=== PATIENT | male | born 1960 | race Caucasian/White ===

== ENCOUNTER 2017-05-13 14:44 | Inpatient (IN) ==
[2017-05-13] MEDS ORDERED: ENOXAPARIN 100 MG/ML SYRINGE SUBCUT STA (15:01)
[2017-05-13] MEDS ORDERED: METOPROLOL TARTRATE 5 MG/5 ML VIAL IV STA (15:01)
[2017-05-13] MEDS ORDERED: NITROGLYCERIN SL 0.4 MG TABLET SL PRN (15:01)
[2017-05-13] MEDS ORDERED: ASPIRIN 325 MG TABLET PO STA (15:01)
[2017-05-13] MEDS ORDERED: NITROGLYCERIN 2% OINT 1 INCH/GM PACK TOP STA (15:06)
--- NOTE | 2017-05-13 15:13 | Emergency Department Note ---
Gaston Camejo Brittany, am scribing for, and in the presence of, Otrega Lynn MD 15:08. Leah Camejo James D, MD, personally performed the services described in this documentation, ascribed by Stormy Feldman in my presence, and it is both accurate and complete 513 . Arrival - Arrival Chief Complaint: Chest Pain Stated Complaint: chest pains short of breath tingle fingers ED Nursing Triage Note: c/o chest pain/tightness that started this morning. Patients states this morning when it started he felt a little sick. He states that he has been having a lot of indigestion for last two days. Patient denies sob. Patient states he has some tingling in his fingers as well. no hx of heart problems. Mode of Arrival: Ambulatory Limitations: No Limitations Source: Patient, RN Notes Reviewed Time Seen by Provider: 05/13/17 15:01 - History of Present Illness HPI Narrative: Patient is a 56 y/o white male presenting to the ED with c/o left sided chest pain described as a tightness that radiates into the mid-back and left finger numbness that began this morning. Patient states that he did break out in a sweat and did have an episode of nausea/vomiting. Patient reports that he has been unable to sit down secondary to anxiety feeling. He notes that he had been having some indigestion recently and initially attributed this chest pain to that, but after prolongation of pain and onset of associated sxs he became concerned. Family history significant for heart disease, father had a quadruple bypass. No PCP. No recent melena, hematochezia, or hematemesis. No history of use of smoking tobacco. No further complaints. Onset (ago): hour(s) Consistency: constant Allergies/Adverse Reactions: Allergies Allergy/AdvReac Type Severity Reaction Status Date / Time No Known Allergies Allergy Unverified 05/13/17 14:57 Review of System - Review of System 12 point system: reviewed and no additional remarkable complaints except as stated - Review of System Constitutional: Present: diaphoresis Respiratory: Absent: respiratory distress Cardiovascular: Present: chest pain Gastrointestinal: Present: nausea, vomiting Musculoskeletal: Present: arm pain (left), back pain. Absent: neck pain Medical,Surgical,& Family Hx - Medical History Medical History: noncontributory - Surgical History Surgical History: noncontributory - Family History Family History: Reports;: Family Heart Disease (father) - Social History Smoking Status: Never smoker Frequency of Alcohol Use: None Type of Drug Use: None Exam Physical Examination: GENERAL: This is a well-nourished, well-developed white male in no apparent distress. VITAL SIGNS: Reviewed. HEENT: Head is normocephalic and atraumatic. Pupils are equally round and reactive to light. Extraocular movement are intact. Oropharynx is benign with moist mucous membranes. NECK: Neck is soft and supple without tenderness. There are no masses. There is no lymphadenopathy. LUNGS: Lungs are clear to auscultation bilaterally. Chest rises symmetrically. There is no chest wall tenderness. CV: Heart is regular rate and rhythm without murmurs, rubs, or gallops. ABDOMEN: Abdomen is soft, non-tender to palpation. There are no abnormal masses palpated. There is no organomegaly. Bowel sounds are present and active. SKIN: Skin is warm and dry. No rash. EXTREMITIES: Patient has full range of motion without tenderness. There is no pedal edema. NEUROLOGIC: Awake, alert, and oriented x4. Cranial nerves II through XII are grossly intact. There are no motorsensory deficits. PSYCHIATRIC: Normal affect. Normal mood. Vital Signs: Vital Signs Temperature 98.1 F 05/13/17 14:51 Pulse Rate 109 H 05/13/17 14:51 Respiratory Rate 18 05/13/17 14:51 Blood Pressure 175/106 05/13/17 14:51 O2 Sat by Pulse Oximetry 96 05/13/17 14:51 Course Course Narrative: Patient was given aspirin, Lovenox, nitroglycerin paste, and Lopressor in the emergency department. - Consultations Consultation #1: Discussed with hospitalist. Patient will be admitted to their service. Time: 15:56 Results - Labs CBC & BMP: 05/13/17 15:35 Lab Results: I have reviewed the patients labs - EKG EKG results: interpreted by ERMD - Impressions EKG: Sinus tachycardia with a rate of 103, nonspecific ST-T wave changes, normal axis. - Diagnostic Findings Procedure: Chest x-ray: image reviewed by me (No infiltrates, no pleural effusions.) Critical Care Time Critical Care Time: No Disposition Clinical Impression: Chest pain, Essential hypertension Case discussed with: patient, patient's family Disposition: Still a Patient Condition: Stable
[2017-05-13] MEDS ORDERED: ENOXAPARIN 100 MG/ML SYRINGE SUBCUT ONE (15:14)
[2017-05-13] MEDS ORDERED: NITROGLYCERIN 2% OINT 1 INCH/GM PACK TOP ONE (15:14)
[2017-05-13] MEDS ORDERED: METOPROLOL TARTRATE 5 MG/5 ML VIAL IV ONE (15:15)
[2017-05-13] MEDS ORDERED: ASPIRIN 325 MG TABLET ONE (15:16)
--- NOTE | 2017-05-13 15:25 | XRay Report ---
2 view chest Indication: Chest pain Comparison: Not available Findings: Cardiomediastinal contours are normal. Lungs are clear bilaterally. . No acute osseous abnormalities. Visualized upper abdomen demonstrates no acute pathology. Impression: Normal chest PROCEDURE INTERPRETED AT [facility] DEPARTMENT OF RADIOLOGY Final Report Signed by: Tiago Hernandez MD
[2017-05-13 15:47] LABS: Basophils # 0.1 10*3/uL (0.0-0.2); Basophils % 0.7 % (0.0-0.8); Eosinophils % 0.1 % (0.00-10.9); Hematocrit 47.3 VOL% (42.0-52.0); Hemoglobin 17.1 GM/DL (14.0-18.0); Immature Granulocytes % 0.5 %; Immature Granulocytes Absolute 0.04 #; Lymphocytes % 12.8 % (21.2-54.2); Mean Corpuscular HGB Conc 36.2 GM/DL (32-36); Mean Corpuscular Hemoglobin 32 PG (27-34); Mean Corpuscular Volume 87.3 FL (87-102); Mean Platelet Volume 10.3 FL (9.6-12.0); Monocytes # 0.5 10*3/uL (0.11-0.8); Neutrophils # 5.9 10*3/uL (1.4-7.4); Neutrophils % 78.9 % (38.7-73.9); Platelet Count 221 T/CUMM (130-400); Red Blood Count 5.42 MC/CUMM (3.8-5.5); Red Cell Distribution Width 13.2 % (9.3-17.3); White Blood Count 7.5 T/CUMM (4-12)
[2017-05-13 15:57] LABS: Apearance,Urine CLEAR (Clear); Bilirubin,Urine Negative (Negative); Blood, Urine Negative (Negative); Glucose,Urine (UA) Negative (Negative); Ketones,Urine Negative (Negative); Mucus,Urine Occasional /LPF (Occasional); Nitrite,Urine Negative (Negative); Protein,Urine Negative; RBC,Urine <1 /HPF (0-4); Urine Color Straw (Yellow); Urine Specific Gravity 1.003 (1.001-1.035); Urine Urobilinogen < 2.0 EU/DL (0.2-1.0); WBC,Urine <1 /HPF (0-6)
[2017-05-13 16:01] LABS: Barbiturates Screen,Urine Negative (Negative); Benzodiazepines Screen,Urine Negative (Negative); Cannabinoid Screen,Urine Negative (Negative); Opiate Screen,Urine Negative (Negative); PT Patient Result 10.8 SECS; Partial Thromboplastin Time 27.7 SECS (0-40); Phencyclidine Screen,Urine Negative (Negative)
[2017-05-13] MEDS ORDERED: ZALEPLON 5 MG CAPSULE PO PRN (16:02)
[2017-05-13] MEDS ORDERED: ONDANSETRON 4 MG/2 ML VIAL IV PRN (16:02)
[2017-05-13 16:04] LABS: Bilirubin,Total 0.4 MG/DL (0.2-1.0); Osmolality,Calculated 278.7 MOS/KG (273-304); Potassium 3.9 MMOL/L (3.5-5.1); Total Protein 7.6 G/DL (6.4-8.3)
[2017-05-13] MEDS ORDERED: FUROSEMIDE 40 MG/4 ML VIAL IV STA (16:05)
[2017-05-13] MEDS ORDERED: hydrALAZINE 20 MG/1 ML VIAL IV STA (16:05)
[2017-05-13 16:29] LABS: Risk Ratio 5.48; VLDL CHOLESTEROL 57.6 MG/DL
--- NOTE | 2017-05-13 16:32 | Hospitalist History & Physical ---
<Deanna Lunada - Last Filed: 05/13/17 16:30> Assessment and Plan (1) Hyperlipemia Status: Acute Assessment and plan: Triglycerides were noted at 288 and cholesterol at 230. The patient reported no past history of hyperlipidemia. We will start Crestor 40 mg p.o. nightly. Current Visit: Yes (2) Chest pain Status: Acute Assessment and plan: Initial cardiac enzymes were noted at less than 0.015. Although the patient reports no significant past medical history, the patient was noted to be grossly hypertensive at the time of ED presentation. In addition, the patient also reported strong family history of cardiovascular disease and he is also overweight. These are certainly risk factors for the development of cardiovascular disease. We will conduct a full cardiac workup. We will obtain echocardiogram, serial troponins, and initiate medical management. If cardiac enzymes are positive, we will consult cardiology. Current Visit: Yes (3) Essential hypertension Status: Acute Assessment and plan: At the time of ED presentation, the patient was noted to be grossly hypertensive with a blood pressure reported at 175/106. The patient reports no significant medical history of hypertension. The patient was given multiple intravenous antihypertensive agents during the ED encounter however, his systolic blood pressure remained above 85. We will start low-grade MELVIN inhibitor, beta-alix, and aspirin prophylactically. We will monitor blood pressures closely during the clinical encounter. Current Visit: Yes History of Present Illness History of present illness: This is a very pleasant 56-year-old male that presented to the ED at [facility] this afternoon for further evaluation of chest pain. The patient reported no significant medical or surgical history at the time of ED presentation; however reported a family history of coronary artery disease. The patient reported the onset of symptoms 6 hours prior to presentation. He reported a sudden onset of left-sided chest pain with radiation to the mid back and left arm that began earlier this morning. During the episode, the patient reported diaphoresis, nausea, and vomiting. He reported immediate anxiety as a result of this episode. In addition, the patient reported multiple episodes in recent days of indigestion that he initially attributed his chest pain to. He became alarmed and drove himself to his daughter's house however, his daughter was not at home. He proceeded to call his who advised him to stop at the [employer] and ask for assistance. The patient was subsequently transported to [facility] for further evaluation. The patient was assessed at the time of ED presentation. The patient was noted to be grossly hypertensive with a blood pressure recorded at 175/106 and tachycardic with a heart rate at 109. The chest pain protocol was initiated. Labs were obtained which were significant for alkaline phosphatase 137, BUN 19, glucose 129, triglycerides 288, and cholesterol 230. Urine toxicology was essentially unremarkable. Chest x-ray was essentially unremarkable. After brief discussion with both Dr. Orozco and Dr. Kerr, the patient will be admitted to the hospitalist group for continuation of care. The patient reported no home medications at the time of ED presentation therefore no medications will be reconciled. CODE STATUS discussed; patient is a FULL CODE. Home Medications Medication Instructions Recorded Confirmed Type No Known Home Medications [No 05/13/17 05/13/17 History Known Home Medications] Allergies Allergy/AdvReac Type Severity Reaction Status Date / Time No Known Allergies Allergy Unverified 05/13/17 14:57 Medical,Surgical,& Family Hx - Medical History Cardio: No history of: Aneurysm, Cerebrovascular Disease Psychological: No history of: Anxiety Disorders, Behavior Problems HEENT: No history of: Ear Problem, Eye Problem Endocrine: No history of: Diabetes Mellitus (NIDDM) Rheumatology: No history of;: Rheumatoid Arthritis, Systemic Lupus Erythematosus Respiratory: No history of: Intubation, Obstructive Sleep Apnea, Pulmonary Embolism Genitourinary: No history of: Bladder Problem, Prostate Problems Gastrointestinal: No history of: Diverticulitis/ Diverticulosis, Esophageal Varices, Pancreatitis Musculoskeletal: History of: Amputation No history of: Back/Neck Problems Hematology: No history of: Anemia Reproductive: No histroy: Penile Disorder Other: History of: Anesthesia Reactions - Surgical History Cardiac Surgeries: Patient Denies: Cardiac Catheterization Thoracic Surgeries: Patient denies;: Kidney (Renal Surgery) HEENT Surgeries: Patient denies: Eye Surgery Abdominal Surgeries: Patient denies: Abdominal Surgery Reproductive Surgeries: Surgical HX of;: Breast Surgery Patient denies;: Genitourinary Surgery Orthopedic Surgeries: Patient denies;: Implanted Devices - Family History Family History: Reports;: Family Heart Disease (father) - Social History Smoking Status: Never smoker Frequency of Alcohol Use: None Type of Drug Use: None Marital Status: Lives With:: Spouse Functional capacity: independent ambulation 12 point system: reviewed and no additional remarkable complaints except as stated Exam - Constitutional Vitals: Period Temp Pulse Resp BP Sys/Ferrer Pulse Ox Last 24 Hr 98.1 F-98.1 F 109-109 18-18 175-175/106-106 96 General appearance: no acute distress, over weight - Head Head exam: Present: normal inspection, normocephalic, atraumatic - Eye Eye exam: Present: EOMI, nystagmus. Absent: conjunctival injection Pupils: Present: SUDHA, normal accommodation - ENT ENT exam: Present: normal exam, normal external ear exam, normal oropharynx - Neck Neck exam: Present: normal inspection. Absent: lymphadenopathy, meningismus, tenderness, thyromegaly - Respiratory Respiratory exam: Present: clear to auscultation bilaterally. Absent: rales, rhonchi, stridor, wheezes - Cardiovascular Cardiovascular exam: Present: regular rate and rhythm. Absent: carotid bruit, diastolic murmur, JVD, systolic murmur, tachycardia - GI/Abdominal GI/Abdominal exam: Present: normal bowel sounds, soft - Extremities Exam Extremities exam: Present: normal inspection, normal capillary refill, full ROM. Absent: edema - Back Exam Back exam: Present: normal inspection - Neurological Exam Neurological exam: Present: alert, oriented X3, CN II-XII intact - Psychiatric Psychiatric exam: Present: normal affect, normal mood - Skin Skin exam: Present: normal color, warm, dry Results - Labs CBC & BMP: 05/13/17 15:35 05/13/17 15:35 Lab Results: I have reviewed the past 24 hour labs <Ke Kerr - Last Filed: 05/13/17 17:05> History of Present Illness History of present illness: Mr. Pitt is a 56 year old male who is being admitted to the hospital with uncontrolled hypertension and chest pain. I have interviewed and examined the patient and reviewed all available laboratory and radiographic test results. Agree with the assessment and plans as per nurse practitioner Evaristo Luna. Mr. Pitt has been begun on antihypertensive medication. Cardiology has been consulted. Exam - Constitutional Vitals: Period Temp Pulse Resp BP Sys/Ferrer Pulse Ox Last 24 Hr 98.1 F-98.1 F 109-109 18-18 175-175/106-106 96 Results - Labs CBC & BMP: 05/13/17 15:35 05/13/17 15:35
[2017-05-13] MEDS ORDERED: hydrALAZINE 20 MG/1 ML VIAL ONE (17:01)
[2017-05-13] MEDS ORDERED: FUROSEMIDE 40 MG/4 ML VIAL ONE (17:02)
[2017-05-13] MEDS ORDERED: hydrALAZINE 20 MG/1 ML VIAL IV PRN (17:08)
[2017-05-13] MEDS ORDERED: ENOXAPARIN 40 MG/0.4 ML SYRINGE SUBCUT SCH (17:30)
[2017-05-13] MEDS ORDERED: INFLUENZA VIRUS VACCINE 0.5 ML SYRINGE IM ONE (18:06)
[2017-05-13] MEDS: CARVEDILOL 6.25 MG TABLET PO SCH (21:18)
[2017-05-13] MEDS: LISINOPRIL 10 MG TABLET PO SCH (21:18)
[2017-05-14 04:37] LABS: Basophils % 0.3 % (0.0-0.8); Eosinophils % 0.5 % (0.00-10.9); Hematocrit 44.8 VOL% (42.0-52.0); Immature Granulocytes % 0.2 %; Immature Granulocytes Absolute 0.02 #; Lymphocytes # 2.1 10*3/uL (1.4-4.0); Lymphocytes % 24.2 % (21.2-54.2); Mean Corpuscular HGB Conc 35.7 GM/DL (32-36); Mean Corpuscular Hemoglobin 31 PG (27-34); Mean Corpuscular Volume 87.7 FL (87-102); Mean Platelet Volume 10.2 FL (9.6-12.0); Neutrophils # 5.6 10*3/uL (1.4-7.4); Neutrophils % 63.8 % (38.7-73.9); Platelet Count 239 T/CUMM (130-400); Red Blood Count 5.11 MC/CUMM (3.8-5.5); Red Cell Distribution Width 13.2 % (9.3-17.3); White Blood Count 8.7 T/CUMM (4-12)
[2017-05-14 05:23] LABS: Albumin 3.5 G/DL (3.4-5.0); Bilirubin,Total 1.1 MG/DL (0.2-1.0); Calcium 9.5 MG/DL (8.5-10.1); Magnesium 2.4 MG/DL (1.8-2.4); Osmolality,Calculated 285.1 MOS/KG (273-304); Phosphorous 4.6 MG/DL (2.5-4.9); Potassium 3.9 MMOL/L (3.5-5.1); Total Protein 6.8 G/DL (6.4-8.3)
[2017-05-14] MEDS ORDERED: ASPIRIN EC 81 MG TABLET PO SCH (09:00)
[2017-05-14] MEDS: LISINOPRIL 10 MG TABLET PO SCH (10:16)
[2017-05-14] MEDS: CARVEDILOL 6.25 MG TABLET PO SCH (10:17)
--- NOTE | 2017-05-14 10:56 | Hospitalist Progress Note ---
Assessment and Plan (1) Chest pain Status: Acute Assessment and plan: Patient is not experiencing any chest pain today. There is no evidence of myocardial infarction. Cardiology has been consulted. Current Visit: Yes (2) Essential hypertension Status: Acute Assessment and plan: His blood pressure today is 102/61. I will discontinue the carvedilol. Current Visit: Yes Hospitalist: Subjective Interval history: He is doing well today with no chest pain. Cardiology has been consulted. Exam - Constitutional Vitals: Period Temp Pulse Resp BP Sys/Ferrer Pulse Ox Last 24 Hr 97.3 F-99 F 74-109 18-20 92-175/53-106 94-97 General appearance: no acute distress - Head Head exam: Present: normal inspection - Neck Neck exam: Present: normal inspection - Respiratory Respiratory exam: Present: clear to auscultation bilaterally - Cardiovascular Cardiovascular exam: Present: regular rate and rhythm - GI/Abdominal GI/Abdominal exam: Present: normal bowel sounds, soft - Extremities Exam Extremities exam: Present: normal inspection - Skin Skin exam: Present: normal color, warm, intact Results - Labs CBC & BMP: 05/14/17 04:29 05/14/17 04:29
[2017-05-14 12:44] VITALS: BP 135/80
--- NOTE | 2017-05-14 14:48 | Order Completion Report ---
See report scanned to EMR
--- NOTE | 2017-05-14 14:53 | Order Completion Report ---
See report scanned to EMR
--- NOTE | 2017-05-14 14:54 | Order Completion Report ---
See report scanned to EMR
--- NOTE | 2017-05-14 15:10 | Cardiology Consult Note ---
Assessment and Plan (1) Chest pain Status: Acute Current Visit: Yes (2) Essential hypertension Status: Acute Current Visit: Yes (3) Hyperlipemia Status: Acute Current Visit: Yes History of Present Illness - Data of Consult Patient: new to practice Consult date: 05/14/17 - Consult Narrative Reason for consult: Chest pain History of present illness: Cut Order Hand: None Mr. Pitt is a 56 year old male without a prior cardiac history and no significant risk factors for heart disease. He presented to the emergency room with complaints of chest discomfort. He acknowledges a long-standing history of periodic indigestion that is usually related to the kind of foods he eats. He can usually predict what foods will give him the indigestion has learned to take a proton pump inhibitor preemptively, and this helps attenuate his indigestion response. On the day of admission, he had recently been experiencing increasing indigestion, and felt particularly poor on the day of presentation. He has a hard time characterizing what he was feeling, but it sounds like a generalized feeling of being unwell, with some difficulty sitting still, and ill feeling with associated nausea, and eventually evolved into some chest tightness in his left upper chest. The chest tightness did not radiate. There were no clear triggers or alleviators. When he decided to come to the emergency room he did belch and then throw up and this seemed to improve his symptoms. He felt when he began to walk around his symptoms would improve. He denies any associated dyspnea, he may have had some mild diaphoresis. He denies any recent change in his exercise tolerance, denies orthopnea, paroxysmal nocturnal dyspnea, lower extremity edema, change in exercise tolerance. He has not had any other acute illness. Impression and plan: The patient has atypical chest pain and is at low risk for coronary artery disease. His cardiac biomarkers are negative. His echocardiogram is unremarkable. He has not had any recurrent symptoms. The patient is not ambulated around the nurse's station without re-creating his symptoms. From my standpoint he is stable to go home and we will follow-up with further risk stratification in the outpatient setting (since this is not offered in the hospital on the weekends) at our clinic. We will give him the number to our clinic and ask him to call in Tuesday, and we will also try to reach him as well. He was also hypertensive upon initial presentation, but since then has been significantly hypotensive with a systolic pressure in the 90s-100s. I have asked him to continue to monitor his blood pressure at home. CC: Ke Kerr - Home Medications and Allergies Home Medications: Home Medications Medication Instructions Recorded Confirmed Type No Known Home Medications [No 05/13/17 05/13/17 History Known Home Medications] Allergies/Adverse Reactions: Allergies Allergy/AdvReac Type Severity Reaction Status Date / Time No Known Allergies Allergy Unverified 05/13/17 14:57 12 point system: reviewed and no additional remarkable complaints except as stated Medical,Surgical,& Family Hx - Medical History Cardio: No history of: Aneurysm, Cerebrovascular Disease Psychological: No history of: Anxiety Disorders, Behavior Problems HEENT: No history of: Ear Problem, Eye Problem Endocrine: No history of: Diabetes Mellitus (NIDDM) Rheumatology: No history of;: Rheumatoid Arthritis, Systemic Lupus Erythematosus Respiratory: No history of: Intubation, Obstructive Sleep Apnea, Pulmonary Embolism Genitourinary: No history of: Bladder Problem, Prostate Problems Gastrointestinal: No history of: Diverticulitis/ Diverticulosis, Esophageal Varices, Pancreatitis Musculoskeletal: History of: Amputation No history of: Back/Neck Problems Hematology: No history of: Anemia Reproductive: No histroy: Penile Disorder Other: History of: Anesthesia Reactions - Surgical History Cardiac Surgeries: Patient Denies: Cardiac Catheterization Thoracic Surgeries: Patient denies;: Kidney (Renal Surgery) HEENT Surgeries: Patient denies: Eye Surgery Abdominal Surgeries: Surgical HX of: Colonoscopy Patient denies: Abdominal Surgery Reproductive Surgeries: Surgical HX of;: Breast Surgery Patient denies;: Genitourinary Surgery Orthopedic Surgeries: Patient denies;: Implanted Devices - Family History Family History: Reports;: Family Cancer (sister-breast), Family Diabetes (father ), Family Heart Disease (father-quad bypass), Family Hypertension (mother) - Social History Smoking Status: Never smoker Frequency of Alcohol Use: Occasionally Type of Drug Use: None Marital Status: Lives With:: Spouse Functional capacity: independent ambulation Physical Examination Vital Signs Temp Pulse Resp BP Pulse Ox 98.1 F 109 H 18 175/106 96 05/13/17 14:51 05/13/17 14:51 05/13/17 14:51 05/13/17 14:51 05/13/17 14:51 Exam: General appearance: normal weight, no acute distress - Head Head exam: Present: normal inspection, normocephalic, atraumatic. Absent: hematoma, laceration - Eye Eye exam: Present: EOMI. Absent: conjunctival injection, nystagmus, periorbital swelling, scleral icterus, laceration to eyelids Pupils: Present: PERRL. Absent: constricted, dilated, fixed, irregular, unequal - ENT ENT exam: Present: normal exam, normal external ear exam - Neck Neck exam: Present: normal inspection. Absent: lymphadenopathy, meningismus, tenderness, thyromegaly - Respiratory Respiratory exam: Present: clear to auscultation bilaterally. Absent: accessory muscle use, chest wall tenderness - Cardiovascular Cardiovascular exam: Present: regular rate and rhythm. Absent: carotid bruit, gallop, JVD, rubs - GI/Abdominal GI/Abdominal exam: Present: normal bowel sounds, soft. Absent: distended, firm , guarding, hernia, mass, tenderness, rebound. - Extremities Exam Extremities exam: Present: normal inspection, normal capillary refill. Absent: calf tenderness, edema - Back Exam Back exam: Present: normal inspection. Absent: muscle spasm, vertebral tenderness - Neurological Exam Neurological exam: Present: alert, oriented X3, grossly intact without resting or intention tremor - Psychiatric Psychiatric exam: Present: normal affect, normal mood - Skin Skin exam: Present: normal color, warm, dry, intact. Absent: cyanosis, diaphoretic, rash, urticaria Result/EKG - Labs CBC & BMP: 05/14/17 04:29 05/14/17 04:29 Lab Results: I have reviewed the past 24 hour labs Labs: Laboratory Results - last 24 hr 05/13/17 05/13/17 05/13/17 15:35 15:35 15:35 WBC RBC Hgb Hct MCV MCH MCHC RDW Plt Count MPV Neut % (Auto) Lymph % (Auto) [place] % (Auto) Eos % (Auto) Baso % (Auto) Neut # (Auto) Lymph # (Auto) [place] # (Auto) Eos # (Auto) Baso # (Auto) Immature Gran % Nucleated RBC % Immature Gran # Nucleated RBCs # Immature Plt Fraction INR 1.0 PT Patient/Control Mix 10.8 Circ Anticoag PTT 27.7 Sodium 138 Potassium 3.9 Chloride 105 Carbon Dioxide 27 Anion Gap 9.9 BUN 19 H Creatinine 1.20 GFR Calculation 81 BUN/Creatinine Ratio 15.00 Glucose 129 H Hemoglobin A1c Calculated Osmolality 278.7 Calcium 9.0 Phosphorus Magnesium Total Bilirubin 0.40 AST 22 ALT 51 Alkaline Phosphatase 137 H Troponin I Total Protein 7.6 Albumin 4.0 Globulin 3.6 H Albumin/Globulin Ratio 1.1 Triglycerides Cholesterol LDL Cholesterol VLDL Cholesterol HDL Cholesterol Heart Disease Risk Ratio Urine Color Straw Urine Appearance Clear Urine pH 5.0 Ur Specific [place] 1.003 Urine Protein Negative Urine Glucose (UA) Negative Urine Ketones Negative Urine Blood Negative Urine Nitrate Negative Urine Bilirubin Negative Urine Urobilinogen < 2.0 H Urine Leukocytes Negative Urine RBC <1 Urine WBC <1 Urine Mucus Occasional Ur Culture Indicated? Not indicated Urine Opiates Screen Ur Barbiturates Screen Ur Phencyclidine Scrn U Amphetamine/Methamph U Benzodiazepines Scrn U Cocaine Metab Screen U Cannabinoids Screen 05/13/17 05/13/17 05/13/17 15:35 15:35 15:35 WBC 7.5 RBC 5.42 Hgb 17.1 Hct 47.3 MCV 87.3 MCH 32 MCHC 36.2 H RDW 13.2 Plt Count 221 MPV 10.3 Neut % (Auto) 78.9 H Lymph % (Auto) 12.8 L [place] % (Auto) 7.0 Eos % (Auto) 0.1 Baso % (Auto) 0.7 Neut # (Auto) 5.9 Lymph # (Auto) 1.0 L [place] # (Auto) 0.5 Eos # (Auto) 0.0 Baso # (Auto) 0.1 Immature Gran % 0.5 Nucleated RBC % 0.0 Immature Gran # 0.04 Nucleated RBCs # 0.00 Immature Plt Fraction 0.0 INR PT Patient/Control Mix Circ Anticoag PTT Sodium Potassium Chloride Carbon Dioxide Anion Gap BUN Creatinine GFR Calculation BUN/Creatinine Ratio Glucose Hemoglobin A1c Calculated Osmolality Calcium Phosphorus Magnesium Total Bilirubin AST ALT Alkaline Phosphatase Troponin I < 0.015 Total Protein Albumin Globulin Albumin/Globulin Ratio Triglycerides Cholesterol LDL Cholesterol VLDL Cholesterol HDL Cholesterol Heart Disease Risk Ratio Urine Color Urine Appearance Urine pH Ur Specific [place] Urine Protein Urine Glucose (UA) Urine Ketones Urine Blood Urine Nitrate Urine Bilirubin Urine Urobilinogen Urine Leukocytes Urine RBC Urine WBC Urine Mucus Ur Culture Indicated? Urine Opiates Screen Negative Ur Barbiturates Screen Negative Ur Phencyclidine Scrn Negative U Amphetamine/Methamph Negative U Benzodiazepines Scrn Negative U Cocaine Metab Screen Negative U Cannabinoids Screen Negative 05/13/17 05/13/1705/13/17 15:35 15:35 18:20 WBC RBC Hgb Hct MCV MCH MCHC RDW Plt Count MPV Neut % (Auto) Lymph % (Auto) [place] % (Auto) Eos % (Auto) Baso % (Auto) Neut # (Auto) Lymph # (Auto) [place] # (Auto) Eos # (Auto) Baso # (Auto) Immature Gran % Nucleated RBC % Immature Gran # Nucleated RBCs # Immature Plt Fraction INR PT Patient/Control Mix Circ Anticoag PTT Sodium Potassium Chloride Carbon Dioxide Anion Gap BUN Creatinine GFR Calculation BUN/Creatinine Ratio Glucose Hemoglobin A1c 5.6 Calculated Osmolality Calcium Phosphorus Magnesium Total Bilirubin AST ALT Alkaline Phosphatase Troponin I < 0.015 Total Protein Albumin Globulin Albumin/Globulin Ratio Triglycerides 288 H Cholesterol 230 H LDL Cholesterol 140.0 VLDL Cholesterol 57.6 HDL Cholesterol 42 Heart Disease Risk Ratio 5.48 Urine Color Urine Appearance Urine pH Ur Specific [place] Urine Protein Urine Glucose (UA) Urine Ketones Urine Blood Urine Nitrate Urine Bilirubin Urine Urobilinogen Urine Leukocytes Urine RBC Urine WBC Urine Mucus Ur Culture Indicated? Urine Opiates Screen Ur Barbiturates Screen Ur Phencyclidine Scrn U Amphetamine/Methamph U Benzodiazepines Scrn U Cocaine Metab Screen U Cannabinoids Screen 05/13/17 05/14/17 05/14/17 21:01 04:29 04:29 WBC 8.7 RBC 5.11 Hgb 16.0 Hct 44.8 MCV 87.7 MCH 31 MCHC 35.7 RDW 13.2 Plt Count 239 MPV 10.2 Neut % (Auto) 63.8 Lymph % (Auto) 24.2 [place] % (Auto) 11.0 Eos % (Auto) 0.5 Baso % (Auto) 0.3 Neut # (Auto) 5.6 Lymph # (Auto) 2.1 [place] # (Auto) 1.0 H Eos # (Auto) 0.0 Baso # (Auto) 0.0 Immature Gran % 0.2 Nucleated RBC % 0.0 Immature Gran # 0.02 Nucleated RBCs # 0.00 Immature Plt Fraction 0.0 INR PT Patient/Control Mix Circ Anticoag PTT Sodium 142 Potassium 3.9 Chloride 102 Carbon Dioxide 32 Anion Gap 11.9 BUN 22 H Creatinine 1.70 H GFR Calculation 53 BUN/Creatinine Ratio 12.00 Glucose 95 Hemoglobin A1c Calculated Osmolality 285.1 Calcium 9.5 Phosphorus 4.6 Magnesium 2.4 Total Bilirubin 1.10 H AST 19 ALT 41 Alkaline Phosphatase 118 H Troponin I < 0.015 Total Protein 6.8 Albumin 3.5 Globulin 3.3 Albumin/Globulin Ratio 1.0 L Triglycerides Cholesterol LDL Cholesterol VLDL Cholesterol HDL Cholesterol Heart Disease Risk Ratio Urine Color Urine Appearance Urine pH Ur Specific [place] Urine Protein Urine Glucose (UA) Urine Ketones Urine Blood Urine Nitrate Urine Bilirubin Urine Urobilinogen Urine Leukocytes Urine RBC Urine WBC Urine Mucus Ur Culture Indicated? Urine Opiates Screen Ur Barbiturates Screen Ur Phencyclidine Scrn U Amphetamine/Methamph U Benzodiazepines Scrn U Cocaine Metab Screen U Cannabinoids Screen - Diagnostic Findings Procedure: Chest x-ray: report reviewed by me, Ultrasound: report reviewed by me - EKG EKG results: interpreted by me, sinus rhythm, no acute changes
--- NOTE | 2017-05-14 15:11 | Discharge Summary ---
Hospital Course - Hospital Course Hospital Course: This is a very pleasant 56-year-old male that presented to the ED at [facility] this afternoon for further evaluation of chest pain. The patient reported no significant medical or surgical history at the time of ED presentation; however reported a family history of coronary artery disease. The patient reported the onset of symptoms 6 hours prior to presentation. He reported a sudden onset of left-sided chest pain with radiation to the mid back and left arm that began earlier this morning. During the episode, the patient reported diaphoresis, nausea, and vomiting. He reported immediate anxiety as a result of this episode. In addition, the patient reported multiple episodes in recent days of indigestion that he initially attributed his chest pain to. He became alarmed and drove himself to his daughter's house however, his daughter was not at home. He proceeded to call his who advised him to stop at the [employer] and ask for assistance. The patient was subsequently transported to [facility] for further evaluation. The patient was assessed at the time of ED presentation. The patient was noted to be grossly hypertensive with a blood pressure recorded at 175/106 and tachycardic with a heart rate at 109. The chest pain protocol was initiated. Labs were obtained which were significant for alkaline phosphatase 137, BUN 19, glucose 129, triglycerides 288, and cholesterol 230. Urine toxicology was essentially unremarkable. Chest x-ray was essentially unremarkable. Patient's blood pressure was successfully treated with a combination of carvedilol and lisinopril. For the next morning both medications were discontinued because his blood pressure had decreased to 102/60. Patient was seen in consultation by Dr. Reveles of cardiology. There is no evidence of myocardial infarction and he experienced no recurrent chest pain. Dr. Reveles recommended that he be discharged and undergo an outpatient exercise stress test. Diagnosis - Discharge Diagnosis (1) Chest pain Status: Acute (2) Essential hypertension Status: Acute Discharge Plan - Discharge Data Disposition: Disch To Home/Self Care Condition at Discharge: Stable Discharge Diet: advance to your usual diet Activity: resume usual activities as tolerated - Discharge Medications No Action No Known Home Medications [No Known Home Medications] - Follow Up or Referral - Forms/Instructions Exam - Constitutional Vitals: Period Temp Pulse Resp BP Sys/Ferrer Pulse Ox Last 24 Hr 97 F-99 F 74-92 18-20 92-137/53-98 94-97 Discharge Results Procedures and tests throughout hospitalization: Pending Orders 05/13/17 15:35 Thyroid Function Benedict, S Stat Labs on day of discharge: Labs from last 24 hours 05/14/17 05/14/17 05/13/17 04:29 04:29 21:01 WBC 8.7 RBC 5.11 Hgb 16.0 Hct 44.8 MCV 87.7 MCH 31 MCHC 35.7 RDW 13.2 Plt Count 239 MPV 10.2 Neut % (Auto) 63.8 Lymph % (Auto) 24.2 [place] % (Auto) 11.0 Eos % (Auto) 0.5 Baso % (Auto) 0.3 Neut # (Auto) 5.6 Lymph # (Auto) 2.1 [place] # (Auto) 1.0 H Eos # (Auto) 0.0 Baso # (Auto) 0.0 Immature Gran % 0.2 Nucleated RBC % 0.0 Immature Gran # 0.02 Nucleated RBCs # 0.00 Immature Plt Fraction 0.0 INR PT Patient/Control Mix Circ Anticoag PTT Sodium 142 Potassium 3.9 Chloride 102 Carbon Dioxide 32 Anion Gap 11.9 BUN 22 H Creatinine 1.70 H GFR Calculation 53 BUN/Creatinine Ratio 12.00 Glucose 95 Hemoglobin A1c Calculated Osmolality 285.1 Calcium 9.5 Phosphorus 4.6 Magnesium 2.4 Total Bilirubin 1.10 H AST 19 ALT 41 Alkaline Phosphatase 118 H Troponin I < 0.015 Total Protein 6.8 Albumin 3.5 Globulin 3.3 Albumin/Globulin Ratio 1.0 L Triglycerides Cholesterol LDL Cholesterol VLDL Cholesterol HDL Cholesterol Heart Disease Risk Ratio Urine Color Urine Appearance Urine pH Ur Specific [place] Urine Protein Urine Glucose (UA) Urine Ketones Urine Blood Urine Nitrate Urine Bilirubin Urine Urobilinogen Urine Leukocytes Urine RBC Urine WBC Urine Mucus Ur Culture Indicated? Urine Opiates Screen Ur Barbiturates Screen Ur Phencyclidine Scrn U Amphetamine/Methamph U Benzodiazepines Scrn U Cocaine Metab Screen U Cannabinoids Screen 05/13/17 05/13/17 05/13/17 18:20 15:35 15:35 WBC RBC Hgb Hct MCV MCH MCHC RDW Plt Count MPV Neut % (Auto) Lymph % (Auto) [place] % (Auto) Eos % (Auto) Baso % (Auto) Neut # (Auto) Lymph # (Auto) [place] # (Auto) Eos # (Auto) Baso # (Auto) Immature Gran % Nucleated RBC % Immature Gran # Nucleated RBCs # Immature Plt Fraction INR PT Patient/Control Mix Circ Anticoag PTT Sodium Potassium Chloride Carbon Dioxide Anion Gap BUN Creatinine GFR Calculation BUN/Creatinine Ratio Glucose Hemoglobin A1c 5.6 Calculated Osmolality Calcium Phosphorus Magnesium Total Bilirubin AST ALT Alkaline Phosphatase Troponin I < 0.015 Total Protein Albumin Globulin Albumin/Globulin Ratio Triglycerides 288 H Cholesterol 230 H LDL Cholesterol 140.0 VLDL Cholesterol 57.6 HDL Cholesterol 42 Heart Disease Risk Ratio 5.48 Urine Color Urine Appearance Urine pH Ur Specific [place] Urine Protein Urine Glucose (UA) Urine Ketones Urine Blood Urine Nitrate Urine Bilirubin Urine Urobilinogen Urine Leukocytes Urine RBC Urine WBC Urine Mucus Ur Culture Indicated? Urine Opiates Screen Ur Barbiturates Screen Ur Phencyclidine Scrn U Amphetamine/Methamph U Benzodiazepines Scrn U Cocaine Metab Screen U Cannabinoids Screen 05/13/17 05/13/17 05/13/17 15:35 15:35 15:35 WBC 7.5 RBC 5.42 Hgb 17.1 Hct 47.3 MCV 87.3 MCH 32 MCHC 36.2 H RDW 13.2 Plt Count 221 MPV 10.3 Neut % (Auto) 78.9 H Lymph % (Auto) 12.8 L [place] % (Auto) 7.0 Eos % (Auto) 0.1 Baso % (Auto) 0.7 Neut # (Auto) 5.9 Lymph # (Auto) 1.0 L [place] # (Auto) 0.5 Eos # (Auto) 0.0 Baso # (Auto) 0.1 Immature Gran % 0.5 Nucleated RBC % 0.0 Immature Gran # 0.04 Nucleated RBCs # 0.00 Immature Plt Fraction 0.0 INR PT Patient/Control Mix Circ Anticoag PTT Sodium Potassium Chloride Carbon Dioxide Anion Gap BUN Creatinine GFR Calculation BUN/Creatinine Ratio Glucose Hemoglobin A1c Calculated Osmolality Calcium Phosphorus Magnesium Total Bilirubin AST ALT Alkaline Phosphatase Troponin I < 0.015 Total Protein Albumin Globulin Albumin/Globulin Ratio Triglycerides Cholesterol LDL Cholesterol VLDL Cholesterol HDL Cholesterol Heart Disease Risk Ratio Urine Color Urine Appearance Urine pH Ur Specific [place] Urine Protein Urine Glucose (UA) Urine Ketones Urine Blood Urine Nitrate Urine Bilirubin Urine Urobilinogen Urine Leukocytes Urine RBC Urine WBC Urine Mucus Ur Culture Indicated? Urine Opiates Screen Negative Ur Barbiturates Screen Negative Ur Phencyclidine Scrn Negative U Amphetamine/Methamph Negative U Benzodiazepines Scrn Negative U Cocaine Metab Screen Negative U Cannabinoids Screen Negative 05/13/17 05/13/17 05/13/17 15:35 15:35 15:35 WBC RBC Hgb Hct MCV MCH MCHC RDW Plt Count MPV Neut % (Auto) Lymph % (Auto) [place] % (Auto) Eos % (Auto) Baso % (Auto) Neut # (Auto) Lymph # (Auto) [place] # (Auto) Eos # (Auto) Baso # (Auto) Immature Gran % Nucleated RBC % Immature Gran # Nucleated RBCs # Immature Plt Fraction INR 1.0 PT Patient/Control Mix 10.8 Circ Anticoag PTT 27.7 Sodium 138 Potassium 3.9 Chloride 105 Carbon Dioxide 27 Anion Gap 9.9 BUN 19 H Creatinine 1.20 GFR Calculation 81 BUN/Creatinine Ratio 15.00 Glucose 129 H Hemoglobin A1c Calculated Osmolality 278.7 Calcium 9.0 Phosphorus Magnesium Total Bilirubin 0.40 AST 22 ALT 51 Alkaline Phosphatase 137 H Troponin I Total Protein 7.6 Albumin 4.0 Globulin 3.6 H Albumin/Globulin Ratio 1.1 Triglycerides Cholesterol LDL Cholesterol VLDL Cholesterol HDL Cholesterol Heart Disease Risk Ratio Urine Color Straw Urine Appearance Clear Urine pH 5.0 Ur Specific [place] 1.003 Urine Protein Negative Urine Glucose (UA) Negative Urine Ketones Negative Urine Blood Negative Urine Nitrate Negative Urine Bilirubin Negative Urine Urobilinogen < 2.0 H Urine Leukocytes Negative Urine RBC <1 Urine WBC <1 Urine Mucus Occasional Ur Culture Indicated? Not indicated Urine Opiates Screen Ur Barbiturates Screen Ur Phencyclidine Scrn U Amphetamine/Methamph U Benzodiazepines Scrn U Cocaine Metab Screen U Cannabinoids Screen DS: Provider Date of admission: 05/13/17 16:01 Primary care physician: . No PCP Attending physician on admission: Ke Kerr Consults: 05/13/17 17:09 Consult to Physician [CONS] Routine Comment: chest pain Consulting Provider: Consult to Specialist Group: Cardiology When should Consulting Provider be notified: Now Discharging clinician: Ke Kerr
== END 2017-05-14 15:38 | disposition home or self-care (01) | DRG 313 ==
LOC: N.ED 14:44 → N.EDINP 16:01 → N.TELES 16:49